=== PATIENT | male | born 1975 | race Caucasian/White ===

== ENCOUNTER 2019-02-15 20:55 | Emergency (ER) | payer SELFPAY ==
[2019-02-15] MEDS ORDERED: LIDOCAINE 1% 10 ML VIAL INJ ONE (21:22)
[2019-02-15] MEDS ORDERED: NEOMYCIN-BACITRACIN-POLYMYXIN 0.9 GM UD TOP ONE (21:29)
[2019-02-15] MEDS ORDERED: CHLORHEXIDINE GLUCONATE 4 % 15 ML UD TOP ONE (21:29)
--- NOTE | 2019-02-15 21:34 | ED.PDOC ---
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 Timing/Duration: just prior to arrival Severity: mild Improving Factors: nothing Worsening Factors: nothing Associated Symptoms: denies symptoms Allergies/Adverse Reactions: Allergies NO KNOWN ALLERGY Allergy (Verified 10/28/16 17:59) Review of Systems - Review of Systems Constitutional: States: no symptoms reported Respiratory: States: no symptoms reported Musculoskeletal: States: see HPI Skin: States: see HPI Neurological: States: no symptoms reported Past Medical History (General) - Patient Medical History Hx Seizures: No Hx Stroke: No Hx Dementia: No Hx Asthma: No Hx of COPD: No Hx Cardiac Disorders: No Hx Congestive Heart Failure: No Hx Pacemaker: No Hx Hypertension: No Hx Thyroid Disease: No Hx Diabetes: No Hx Gastroesophageal Reflux: No Hx Renal Disease: No Hx of HIV: No Hx MRSA: No Surgical History: other - Vaccination History Hx Tetanus, Diphtheria Vaccination: No - 4yrs ago Hx Influenza Vaccination: No Hx Pneumococcal Vaccination: No - Social History Hx Tobacco Use: Yes Family Medical History - Family History Father Living Status: Hx Family Hypertension: Yes Physical Exam - Physical Exam General Appearance: Alert, Comfortable, No apparent distress Neck: supple Cardiovascular/Chest: other - fish hook embedded in right chest wall Respiratory: no respiratory distress Neurologic: alert, normal mood/affect, oriented x 3 Skin Exam: warm/dry, normal color Progress - Progress Progress: 02/15/19 21:34 Td up to date. Wound care by RN. Procedures - Foreign Body Removal Foreign Body Removal: fish hook - no complications Foreign Body Physician Comment:: 1% lidocaine. Shank cut after barbie advanced out of the skin. Cut & removed Departure - Departure Clinical Impression: Puncture wound Time of Disposition: 21:36 Disposition: Discharge to Home or Self Care Condition: Fair Departure Forms: ED Discharge - Pt. Copy, Patient Portal Self Enrollment Instructions: Wound Care (DC) Additional Instructions: return here if any complications
[2019-02-15 21:35] VITALS: BP 155/94; TEMP 98.7; O2SAT 94
== END 2019-02-15 21:54 | disposition home or self-care (01) ==
LOC: ER 20:55
DX: S20.351A Superficial foreign body of right front wall of thorax, initial encounter (principal); W45.8XXA Other foreign body or object entering through skin, initial encounter; Z87.891 Personal history of nicotine dependence; Y92.9 Unspecified place or not applicable